=== PATIENT | male | born 1940 | race Caucasian/White ===

== ENCOUNTER 2021-12-03 00:32 | Inpatient (IN) | payer MEDICARE, OTHER, SELFPAY ==
[2021-12-03] VITALS (14 sets, daily range): BP systolic 108–187; BP diastolic 63–108; PULSE 60–115; RESP 16–26; TEMP 36.8–38.8; O2SAT 91–98; BMI 19.3; BMI 21.7; BMI 21.9; BMI 17.7
--- NOTE | 2021-12-03 00:49 | XR_ITS ---
PROCEDURE INFORMATION: Exam: XR Chest Exam date and time: 12/03/2021 1:49 AM Age: 81 years old Clinical indication: Sternal or substernal pain; Additional info: Chest pain TECHNIQUE: Imaging protocol: XR of the chest. Views: 1 view. COMPARISON: CT CERVICAL SPINE WO CON 12/03/2021 1:41 AM FINDINGS: Lungs: Infiltrates within the right upper lobe and bilateral lung bases. Pleural spaces: Unremarkable. No pleural effusion. No pneumothorax. Heart/Mediastinum: Unremarkable. No cardiomegaly. Vasculature: Calcification within thoracic aorta. Bones/joints: Unremarkable. IMPRESSION: Infiltrates within the right upper lobe and bilateral lung bases.
[2021-12-03 00:51] LABS: ABG Base Excess -7.2 mmol/L (-2.4-2.3); ABG HCO3 17.5 mmhg (22.0-26.0); ABG Oxygen Saturation 97 % (90-100); ABG PCO2 28.3 mmhg (35.0-45.0); ABG PH 7.41 mmol/L (7.35-7.45); ABG PO2 84.3 mmhg (80-100); ABG TCO2 18.3 mmhg (23-27)
--- NOTE | 2021-12-03 00:51 | CT_ITS ---
PROCEDURE INFORMATION: Exam: CT Head Without Contrast Exam date and time: 12/03/2021 1:39 AM Age: 81 years old Clinical indication: Altered mental status/memory loss; Confusion or disorientation; Additional info: AMS TECHNIQUE: Imaging protocol: Computed tomography of the head without contrast. Radiation optimization: All CT scans at this facility use at least one of these dose optimization techniques: automated exposure control; mA and/or kV adjustment per patient size (includes targeted exams where dose is matched to clinical indication); or iterative reconstruction. COMPARISON: No relevant prior studies available. FINDINGS: Brain: Patchy hypoattenuation in the periventricular deep white matter bilaterally. Cerebral ventricles: Enlargement of ventricles, sulci and cisterns bilaterally. Paranasal sinuses: Mucosal thickening within paranasal sinuses but no fluid levels are evident. Mastoid air cells: Visualized mastoid air cells are well aerated. Bones/joints: Severe degenerative changes of the cervical spine. Diffuse bone demineralization. Soft tissues: Unremarkable. Vasculature: Calcification of carotid siphons and vertebrobasilar arterial systems. IMPRESSION: 1. No evidence for acute intracranial hemorrhage, midline shift or mass effect. 2. Cortical atrophy and chronic periventricular microangiopathy.
[2021-12-03 00:52] LABS: Allen's Test Non Applicable; Oxygen 2LPM %; Source Left Brachial
--- NOTE | 2021-12-03 01:04 | CT_ITS ---
PROCEDURE INFORMATION: Exam: CT Cervical Spine Without Contrast Exam date and time: 12/03/2021 1:41 AM Age: 81 years old Clinical indication: Other: Altered mental status; Additional info: AMS TECHNIQUE: Imaging protocol: Computed tomography images of the cervical spine without contrast. Radiation optimization: All CT scans at this facility use at least one of these dose optimization techniques: automated exposure control; mA and/or kV adjustment per patient size (includes targeted exams where dose is matched to clinical indication); or iterative reconstruction. COMPARISON: CT HEAD/BRAIN WO CON 12/03/2021 1:39 AM FINDINGS: Bones/joints: Reversal of lordosis which is in part due to remote anterior wedge fractures of C3, C4 and C5. Diffuse bone demineralization. Discs/Spinal canal/Neural foramina: Cortical atrophy and chronic periventricular microangiopathy of the brain parenchyma. Diffuse degenerative disc and facet disease result in multilevel central and foraminal stenosis within the cervical spine. Grade 1 retrolisthesis of C5 appears to be on the basis of chronic degenerative disc and facet disease. Grade 1 anterolisthesis of C2 appears to be on the basis of chronic degenerative disc and facet disease. Lungs: Chronic interstitial disease, scarring and subpleural cyst formation of the lung apices. Vasculature: Calcifications within the regional arteries. Soft tissues: Unremarkable. IMPRESSION: 1. Cortical atrophy and chronic periventricular microangiopathy of the brain parenchyma. 2. Atherosclerotic vascular disease. 3. Diffuse degenerative disc and facet disease result in multilevel central and foraminal stenosis within the cervical spine. 4. Reversal of lordosis which is in part due to remote anterior wedge fractures of C3, C4 and C5. 5. Grade 1 retrolisthesis of C5 appears to be on the basis of chronic degenerative disc and facet disease. 6. Grade 1 anterolisthesis of C2 appears to be on the basis of chronic degenerative disc and facet disease. 7. Osteopenia. 8. Chronic interstitial disease, scarring and subpleural cyst formation of the lung apices.
[2021-12-03 01:06] LABS: Microscopic, Urine URINE MICROSCOPIC (MICROSCOPIC)
[2021-12-03 01:08] LABS: Basophils # 0.1 K/mm3 (0-0.2); Basophils % 1.8 % (0.1-2.0); Hematocrit 49.7 % (42.0-52.0); Lymphocytes # 0.9 K/mm3 (0.7-4.5); Lymphocytes % 12.3 % (10-50); Mean Corpuscular HGB Conc 34.2 g/dL (31.8-35.4); Mean Corpuscular Hemoglobin 31.2 pg (27.0-31.2); Mean Corpuscular Volume 91.2 fl (80-94); Mean Platelet Volume 8.6 fl (7.4-10.4); Monocytes # 0.5 K/mm3 (0.1-1.0); Neutrophils # 6.1 K/mm3 (1.8-7.8); Platelet Count 192 K/mm3 (142-424); Red Blood Count 5.45 M/mm3 (4.60-6.20); Red Cell Distribution Width 15.1 % (11.5-17.5); White Blood Count 7.6 K/mm3 (4.8-10.8)
[2021-12-03 01:10] LABS: Appearance,Urine CLEAR (Clear); Blood, Urine 3+ (Negative); Color,Urine YELLOW (Yellow); Glucose,Urine (UA) Negative (Negative); Ketones,Urine 1+ (Negative); Leukocyte Esterase,Urine Negative (Negative); Nitrate,Urine Negative (Negative); Protein,Urine 2+ (Negative); Specific Gravity, Urine >= 1.030 (1.005-1.030)
[2021-12-03 01:18] LABS: Bilirubin,Urine Negative (Negative)
[2021-12-03 01:19] LABS: Amorphous Sediment,Urine Trace /lpf; Mucus,Urine 2+ /lpf
[2021-12-03 01:20] LABS: Ammonia < 9 umol/L (9-30)
[2021-12-03 01:22] LABS: Alanine Aminotransferase 28 U/L (12-78); Albumin Level 4.3 g/dl (3.5-5.0); Albumin/Globulin Ratio 1.1 (1.1-1.8); Alkaline Phosphatase 86 U/L (38-126); Anion Gap 16.7 mEq/L (5-15); Aspartate Amino Transferase 55 U/L (17-59); Bilirubin,Total 0.8 mg/dl (0.2-1.3); Blood Urea Nitrogen 34 mg/dl (9-20); Calcium 9.1 mg/dl (8.4-10.2); Carbon Dioxide 22 mmol/L (22.0-30.0); Chloride 104 mmol/L (98-107); Creatinine Clearance Estimated 52 mL/min (50-200); Estimated Glomerular Filt Rate 72 ml/min (>60); GFR (African American) 87 ML/MIN (>60); Globulin 3.8 g/dL (1.3-3.2); Glucose 118 mg/dl (74-100); Potassium 3.7 mmoL/L (3.5-5.1); Sodium 139 mmol/L (136-145); Total Protein,Serum 8.1 g/dl (6.3-8.2)
[2021-12-03 01:24] LABS: Lactic Acid 2.9 mmol/L (0.7-2.1)
[2021-12-03 01:27] LABS: C-Reactive Protein 0.7 mg/L (0-4)
[2021-12-03 01:32] LABS: Reflex Lactic Add Lactic Reflex
[2021-12-03 01:33] LABS: NT Pro Brain Natriuretic Pep. 1790 pg/mL (0-450)
[2021-12-03 01:36] LABS: Troponin I 0.07 ng/ml (0.00-0.034)
--- NOTE | 2021-12-03 01:38 | ECG_ITS ---
APPROVED REPORT Exam: Resting ECG HR:89 bpm ECG Measurements Heart Rate 89 AXES MT 154 P 83 QRSd 72 QRS 75 QT 366 T 83 QTc 412 Conclusion SINUS RHYTHM SEPTAL MYOCARDIAL INFARCTION , OF INDETERMINATE AGE [40+ ms Q WAVE IN V1/V2] ABNORMAL ECG UNCONFIRMED REPORT Electronically signed by : Miki Ortiz MD 12/04/2021 18:43:11
[2021-12-03 01:39] LABS: Erythrocyte Sedimentation Rate 11 mm/hr (0-20)
[2021-12-03 01:41] LABS: Procalcitonin 0.074 ng/mL (0.0-2.0)
--- NOTE | 2021-12-03 01:43 | HMH.EDAMS ---
ED Disposition Clinical Impression: Severe sepsis with acute organ dysfunction CAP (community acquired pneumonia) Qualifiers: Laterality: unspecified laterality Qualified Code(s): J18.9 - Pneumonia, unspecified organism Altered mental status Qualifiers: Altered mental status type: delirium Qualified Code(s): R41.0 - Disorientation, unspecified Disposition: Admitted As Inpatient Condition on Discharge: Serious Instructions: DI for Altered Mental Status - Critical Care Critical Care Time: No Attestation: On , the high probability of a clinically significant, sudden or life threatening deterioration of the following system(s) required my full and direct attention, intervention and personal management. The time I documented below is in addition to time spent performing reported procedures but includes the following listed in this critical care notation. Medical Decision Making - Medical Records Medical records reviewed: Yes: I reviewed the patient's medical records. - Iron Inquiry Pt receiving controlled substance: No Vital Signs: 12/03/21 00:26 12/03/21 01:04 Temperature 101.8 F H Temperature Source Rectal Pulse Rate 89 Pulse Rate [Left Radial] 115 H Respiratory Rate 26 H Blood Pressure [Right Arm] 187/108 H Blood Pressure Mean [Right Arm] 134 Blood Pressure Source [Right Arm] Automatic Cuff Blood Pressure Position [Right Arm] Sitting 02 Sat by Pulse Oximetry 95 Oxygen Delivery Method Nasal Cannula Oxygen Flow Rate (LPM) 2 - Lab Data Lab results reviewed: Yes: I reviewed the patient's lab results. Lab Results 12/03/21 00:48: Specimen Source Left brachial, O2 % 2lpm, ABG pH 7.41, ABG pCO2 28.3 L, ABG pO2 84.3, ABG HCO3 17.5 L, ABG Total CO2 18.3 L, ABG O2 Saturation 97, ABG Base Excess -7.2 L, Layton Test Non applicable 12/03/21 00:55: WBC 7.6, RBC 5.45, Hgb 17.0, Hct 49.7, MCV 91.2, MCH 31.2, MCHC 34.2, RDW 15.1, Plt Count 192, MPV 8.6, Neut % (Auto) 80.0, Lymph % (Auto) 12.3, [place] % (Auto) 6.0, Eos % (Auto) 0.0 L, Baso % (Auto) 1.8, Neut # (Auto) 6.1, Lymph # (Auto) 0.9, [place] # (Auto) 0.5, Eos # (Auto) 0.0, Baso # (Auto) 0.1, ESR 11 12/03/21 00:55: Sodium 139, Potassium 3.7, Chloride 104, Carbon Dioxide 22, Anion Gap 16.7 H, BUN 34 H, Creatinine 1.00, Estimated Creat Clear 52, Estimated GFR 72, Est GFR ( Amer) 87, Glucose 118 H, Calcium 9.1, Total Bilirubin 0.8, AST 55, ALT 28, Alkaline Phosphatase 86, Troponin I 0.07 H, C-Reactive Protein 0.7, Total Protein 8.1, Albumin 4.3, Globulin 3.8 H, Albumin/Globulin Ratio 1.1, Procalcitonin 0.074 12/03/21 00:55: Urine Color Yellow, Urine Appearance Clear, Urine pH 5.0, Ur Specific [place] >= 1.030, Urine Protein 2+, Urine Glucose (UA) Negative, Urine Ketones 1+, Urine Blood 3+, Urine Nitrate Negative, Urine Bilirubin Negative, Urine Urobilinogen 1.0, Ur Leukocyte Esterase Negative, Urine RBC 5-10, Urine WBC 3-5, Ur Squamous Epith Cells 5-10, Amorphous Sediment Trace, Urine Mucus 2+ 12/03/21 00:55: Lactate 2.9 H 12/03/21 00:55: Ammonia < 9 L 12/03/21 00:55: NT-Pro-B Natriuret Pep 1790 H Result diagrams: 12/03/21 00:55 12/03/21 00:55 Orders (Tests/Meds): ED MEDICATIONS Discontinued Medications Generic Name Dose Route Start Last Admin Trade Name Yaima PRN Reason Stop Dose Admin Acetaminophen 650 mg 12/03/21 01:11 12/03/21 01:12 Acetaminophen 650mg Suppository RC 12/03/21 01:12 650 mg ONCE ONE Administration Albuterol/Ipratropium 3 ml 12/03/21 00:49 12/03/21 01:03 Ipratropium/Albuterol 3 Ml Neb IH 12/03/21 00:50 3 ml ONCE ONE Administration Sodium Chloride 1,910 mls @ 955 mls/hr 12/03/21 00:51 12/03/21 01:10 Sod Chlor 0.9% 1000ml Bag 30 ml/kg infuse over 2 hr (1910 ml) 12/03/21 02:50 955 mls/hr IV Administration .Q2H ONE Methylprednisolone Sodium Succinate 125 mg 12/03/21 01:10 12/03/21 01:10 Methylprednisolone Sod Succ 125mg Vial IV 12/03/21 01:11 125 mg ONCE ONE Administration ORDE
[2021-12-03 03:07] LABS: Creatine Kinase 677 U/L (55-170)
--- NOTE | 2021-12-03 03:35 | PC.NURSE ---
PT ARRIVED TO FLOOR VIA STRETCHER FROM ED W/STAFF @ [id number]
[2021-12-03 04:30] LABS: Lactic Acid Follow Up (RFLX 1) 2.8 mmol/L (0.7-2.1)
[2021-12-03 04:31] LABS: Basophils % 0.4 % (0.1-2.0); Eosinophils % 0.1 % (0.1-12.0); Hematocrit 46.3 % (42.0-52.0); Hemoglobin 15.1 g/dL (14.1-18.0); Lymphocytes # 0.5 K/mm3 (0.7-4.5); Lymphocytes % 5.8 % (10-50); Mean Corpuscular HGB Conc 32.5 g/dL (31.8-35.4); Mean Corpuscular Hemoglobin 29.9 pg (27.0-31.2); Mean Corpuscular Volume 91.9 fl (80-94); Mean Platelet Volume 9.2 fl (7.4-10.4); Monocytes # 0.5 K/mm3 (0.1-1.0); Monocytes % 5.5 % (1.7-9.3); Neutrophils # 8.1 K/mm3 (1.8-7.8); Neutrophils % 88.2 % (37.0-80.0); Platelet Count 148 K/mm3 (142-424); Red Blood Count 5.04 M/mm3 (4.60-6.20); Red Cell Distribution Width 15.1 % (11.5-17.5); White Blood Count 9.2 K/mm3 (4.8-10.8)
[2021-12-03 04:33] LABS: MANUAL DIFFERENTIAL MANUAL DIFFERENTIAL (MANUAL DIFF)
[2021-12-03 04:35] LABS: Reflex Lactic (2 hrs) Add Lactic Reflex
[2021-12-03 04:36] LABS: Anion Gap 14.1 mEq/L (5-15); Blood Urea Nitrogen 32 mg/dl (9-20); Calcium 8.1 mg/dl (8.4-10.2); Carbon Dioxide 21 mmol/L (22.0-30.0); Chloride 109 mmol/L (98-107); Creatinine Clearance Estimated 52 mL/min (50-200); Estimated Glomerular Filt Rate 81 ml/min (>60); GFR (African American) 98 ML/MIN (>60); Glucose 133 mg/dl (74-100); Potassium 4.1 mmoL/L (3.5-5.1); Sodium 140 mmol/L (136-145)
--- NOTE | 2021-12-03 04:36 | PC.NURSE ---
Patient is alert and oriented to self. Has altered mental status, preventing him from answering most of the admission questions. He has no family at bedside. He is resting in bed at this time. No signs or expressions of pain or discomfort. Staff placed mittens on patient in order to keep IV lines, nasal cannula, and heart monitor leads in place. Patient is confused and keeps attempting to take them off. When patient arrived on unit, staff gave bed bath once more, skin assessment was obtained at that time. Bed alarm is on and functioning appropriately. Call light within patient's reach and working appropriately.
[2021-12-03 04:50] LABS: Lymphocytes % 10 % (10-50); Neutrophils % 79 % (42-76); Platelet Estimate Normal; RBC Morphology Normal; Total Cells Counted 100
--- NOTE | 2021-12-03 07:04 | HMH.PHAVTE ---
[facility] Pharmacy VTE Monitoring - Patient Demographics Admission date: 12/03/21 Report Date: 12/03/21 Time: 07:04 Allergies/Adverse Reactions: Patient Allergies No Known Allergies Allergy (Verified 12/03/21 00:48) Height: 1.68 m Weight: 50.031 kg Patient Problems: Current Active Problems CAP (community acquired pneumonia) (Acute) Altered mental status (Acute) Severe sepsis with acute organ dysfunction (Acute) - VTE Risk Labs: VTE Related Lab Results Hgb 15.1 g/dL (14.1-18.0) D 12/03/21 04:10 Hct 46.3 % (42.0-52.0) 12/03/21 04:10 Plt Count 148 K/mm3 (142-424) 12/03/21 04:10 BUN 32 mg/dl (9-20) H 12/03/21 04:10 Creatinine 0.90 mg/dl (0.66-1.25) 12/03/21 04:10 Estimated Creat Clear 52 mL/min (50-200) 12/03/21 04:10 - Prophylaxis VTE Prophylaxis Ordered?: Yes Types of VTE Prophylaxis: TEDS Knee High Location of Applied Device: Bilateral Lower Extremeties
--- NOTE | 2021-12-03 07:04 | HMH.PHAINT ---
MEDICATION RECONCILIATION COMPLETED ON PATIENT USING EXTERNAL FILL HISTORY FROM PHARMACY. -CORIE NIETO, LAMBERTD
[2021-12-03 07:20] LABS: Lactic Acid Follow up (RFLX 2) 1.7 mmol/L (0.7-2.1)
--- NOTE | 2021-12-03 07:29 | PC.NURSE ---
Markys taken off at beginning of shift, 7AM, due to no order for restraint. Patient was calm and not pulling lines at this time and exhibited no behavior to demonstrate need for restraint.
[2021-12-03 07:33] LABS: Troponin I 0.09 ng/ml (0.00-0.034)
--- NOTE | 2021-12-03 08:00 | CA_ITS ---
APPROVED REPORT EXAM: Comprehensive 2D, Doppler, and color-flow Echocardiogram Anesthesia Associate: Dina Gooden RDCS Ht: 5 ft 4 in Wt: 155lbs BSA: 1.76 BP: 187/108 mmHg Indications: SOA,PNEUMONIA,SEPSIS TDS SECONDARY TO PT CONTRACTURE Conclusion 1. Limited echocardiogram was performed due to patient's factor, to evaluate left ventricular systolic function. 2. Normal left ventricular size preserved left ventricular systolic function, estimated ejection fraction 55% in the obtained views with no regional wall motion abnormality. 3. No significant pericardial effusion noted. 4. Inferior vena cava normal size with normal inspiratory collapse. Electronically signed by : Rober Kelly MD 12/03/2021 19:42:39
--- NOTE | 2021-12-03 08:17 | HMH.HP ---
*Admission Date: 12/03/21 *Chief complaint: Altered mental status *History of present illness: 81-year-old white male, longtime patient of my practice, who struggles with baseline cognitive/functional impairments and a tremor/tic disorder, and a remote history of polysubstance abuse including a hallucinogenic's and LSD in the remote past, who has been very functional and has been living in a subsidized apartment by himself, while he has a friend of his family who oversees his financial affairs. Unfortunately over the past several months, his Conservatory, Ms. Desouza, has shared with me her concerns about his functional decline issues. This over the past 24 hours has come to ahead with increasing mental status change, some fever and development of increased lethargy and loss of functional status. Was brought to the ER, where extensive work-up revealed elevated lactic levels, fevers, and possible sepsis. He was admitted to the hospital with broad-spectrum antibiotics. And need for further diagnostic testing. [facility] History I have reviewed the patient's past medical history: Yes Medical History: Reports:: Chronic Obstructive Pulmonary Disease (COPD), Gastroesophageal Reflux Disease(GERD) *Have you ever received a pneumonia vaccine?: Yes *Have you received a flu vaccine this season?: Yes Other Medical History: Reports: Other Comment:: History of polysubstance abuse, history of tremor disorder and history of tic disorder Other Surgeries: Yes: No Previous Surgery Amputation: No Fractures: No - *Social History Last grade of school completed: High school graduate Smoking Status: Unknown if ever smoked # Packs/Day (cigarettes): 2 #Yrs smoked (if former smoker): 50 Alcohol Intake: never Substance Use Type: former substance user, hallucinogens, tranquilizers *Occupational Status:: unemployed *Travel in the last 8 weeks: None Family Hx:: No significant family history Review of Systems - Review of Systems Review of systems:: unable to obtain Meds Home Medications Medication Instructions Recorded Confirmed Type Albuterol Sulfate [Albuterol 2 puff IH Q6HP PRN 12/03/21 12/03/21 History Sulfate Hfa] Allergies Allergy/AdvReac Type Severity Reaction Status Date / Time No Known Allergies Allergy Verified 12/03/21 00:48 Exam Vital signs and Labs for Last 24 Hours: Temp Pulse Resp BP Pulse Ox 98.9 F 83 20 140/90 96 12/03/21 03:30 12/03/21 04:03 12/03/21 03:30 12/03/21 03:30 12/03/21 04:24 Laboratory Results - last 24 hr 12/03/21 00:48: Specimen Source Left brachial, O2 % 2lpm, ABG pH 7.41, ABG pCO2 28.3 L, ABG pO2 84.3, ABG HCO3 17.5 L, ABG Total CO2 18.3 L, ABG O2 Saturation 97, ABG Base Excess -7.2 L, Layton Test Non applicable 12/03/21 00:55: WBC 7.6, RBC 5.45, Hgb 17.0, Hct 49.7, MCV 91.2, MCH 31.2, MCHC 34.2, RDW 15.1, Plt Count 192, MPV 8.6, Neut % (Auto) 80.0, Lymph % (Auto) 12.3, [place] % (Auto) 6.0, Eos % (Auto) 0.0 L, Baso % (Auto) 1.8, Neut # (Auto) 6.1, Lymph # (Auto) 0.9, [place] # (Auto) 0.5, Eos # (Auto) 0.0, Baso # (Auto) 0.1, ESR 11 12/03/21 00:55: Sodium 139, Potassium 3.7, Chloride 104, Carbon Dioxide 22, Anion Gap 16.7 H, BUN 34 H, Creatinine 1.00, Estimated Creat Clear 52, Estimated GFR 72, Est GFR ( Amer) 87, Glucose 118 H, Calcium 9.1, Total Bilirubin 0.8, AST 55, ALT 28, Alkaline Phosphatase 86, Troponin I 0.07 H, C-Reactive Protein 0.7, Total Protein 8.1, Albumin 4.3, Globulin 3.8 H, Albumin/Globulin Ratio 1.1, Procalcitonin 0.074 12/03/21 00:55: Urine Color Yellow, Urine Appearance Clear, Urine pH 5.0, Ur Specific [place] >= 1.030, Urine Protein 2+, Urine Glucose (UA) Negative, Urine Ketones 1+, Urine Blood 3+, Urine Nitrate Negative, Urine Bilirubin Negative, Urine Urobilinogen 1.0, Ur Leukocyte Esterase Negative, Urine RBC 5-10, Urine WBC 3-5, Ur Squamous Epith Cells 5-10, Amorphous Sediment Trace, Urine Mucus 2+ 12/03/21 00:55: Lactate 2.9 H 12/03/21 00:55: Ammonia < 9 L 12/03/21 00:55: NT-Pr
[2021-12-03 09:28] LABS: Thyroid Stimulating Hormone 0.53 uIU/mL (0.465-4.68)
--- NOTE | 2021-12-03 09:34 | DIET.NUTRFU ---
RD rounded with provider this AM, provider indicated a mental/overall decline from baseline. He normally lives alone in a half-way environment and is independent with ADL's. Today upon visit he was not able to answer questions appropriately and had not eaten breakfast yet. He may need assistance with meals and placement upon discharge. Will continue to monitor.
[2021-12-03 09:44] LABS: Vitamin B12 240 pg/mL (239-931)
--- NOTE | 2021-12-03 10:01 | HMH.PTEV ---
Physical Therapy Evaluation Rehab PT IP Evaluation Start: 12/03/21 08:25 Freq: ONCE Status: Active Protocol: Document 12/03/21 09:54 PHORSTANISLAV (Rec: 12/03/21 10:01 PHORNE [id number]) Subjective/History History History 81 yowm adm to [facility] with sepsis and AMS. He is currently minimally responsive to all attempts at history. He presents with increased tone throughout B UE and LE and rigidity noted with all positions. Subjective Subjective Pt did not voice any c/o this am. Rehab PT IP Eval Objective Appearance Patient Behavior Sedated,Confused Patient Orientation Person Difficulty following instructions moderate Speech Pattern Delayed Ambulation Patient Able to Ambulate No Balance Ability to Arise Unable Sitting Balance Leans or slides in chair Standing Balance Unsteady Dynamic Sitting Balance Ability Poor Dynamic Standing Balance Ability Poor Transfers Bed Transfer Ability Maximum x 1 (75% assist) Chair Transfer Ability Maximum x 2 (75% assist) Sit to Stand Bed Transfer Ability Maximum x 2 (75% assist) Sit to Stand Chair Transfer Ability Maximum x 2 (75% assist) ROM All Extremities PT ROM Status ABN Abnormal ROM Comment increased tone throughout Rehab PT IP prob,goals,plan Problems Date of Evaluation: 12/03/21 PT IP Problems Bed Mobility,Transfers,Gait, Self care Rehab Potential Rehab Potential Fair Plan PT Intervention Plan Bed Mobility,Transfers,Gait, Balance,Self care,Therapeutic Exercise PT Plan Frequency BID Duration LOS Discharge Goals Bed Transfer Ability Moderate x 1 (50% assist) Sit to Stand Chair Transfer Ability Moderate x 2 (50% assist) Ambulation Distance (feet) 10 Discharge Plan PT Discharge Plan Pt is most appropriate for rehab plcement at this time and would be unable to care for himself independently at this time. G -code Required No Eval Complexity Eval Charge Codes 89537 - High Complexity PHYSICIAN CERTIFICATION: I certify the specified therapy services for Kelvin Fowler are required, authorized, and reviewed every 30 days.
--- NOTE | 2021-12-03 10:01 | SW/DCPLANNER ---
Addendum entered by [facility] 12/06/21 09:58: The plan for this patient is to discharge to [facility] today. Patient will require a COVID swab prior to discharge. I have updated patient's POA regarding discharge plans. Addendum entered by [facility] 12/05/21 15:47: Per Lucinda w/ [facility] this patient will require a COVID swab prior to discharge from [facility]. Addendum entered by [facility] 12/05/21 12:20: Lucinda w/ [facility] has stated that she can accept this patient once medically stable for discharge. The plan is for this patient to discharge [facility] under palliative care w/ [facility]. Addendum entered by [facility] 12/05/21 11:43: Patient information has also been faxed to [facility]. Addendum entered by [facility] 12/04/21 12:01: The following facilities have denied this patient: [facility], [facility], [facility], [facility] and [facility]. Lucinda w/ [facility] and [facility] are currently reviewing patient information. Addendum entered by [facility] 12/03/21 15:43: [facility] has denied this patient. Patient information has been faxed to [facility], [facility] and [facility] [place]. Patient's POA is aware of situation. Addendum entered by [facility] 12/03/21 11:31: [facility]anne vict[facility]/ [facility] is unable to accept this patient. Caity victoria/ [facility] is currently reviewing patient information. Original Note: I spoke with patient's POA (Renata Desouza [phone]) regarding discharge plans for this patient. Renata stated that patient has needed rehabilitation for the past couple weeks. I did explain to Renata that PT/OT did evaluate this patient this AM and recommended SNF level of care at time of discharge. Renata expressed an interest in [facility] or [facility]: patient information will be faxed to both facilities. Renata is aware that she will need to bring POA documentation to hospital. Discharge date is unknown at this time: I will continue to follow up with MD and POA.
--- NOTE | 2021-12-03 10:45 | HMH.OTEV ---
OT Inpatient Evaluation Rehab OT IP Evaluation Start: 12/03/21 08:25 Freq: ONCE Status: Complete Protocol: Document 12/03/21 10:38 [facility] (Rec: 12/03/21 10:45 [facility] [id number]) Rehab OT IP Assessment Subjective History Pt resting in bed on arrival. Pt is minimally responsive to all attempts to obtain a history of prior level of function. Pt also does not answer orientation questions. Pt was admitted on 12/03/21 due to altered mental status. He presents with significant tone in Bilateral UE and LE. He remains rigid in all positions. Subjective Pt did not engage in verbal communcation. Pt required max assist x 2 to go from supine to sitting at eob. Pt required min/cga to maintain statid sittin balance at eob. Pt completed a sit stand, pivot transfer from bed to chair with max assist x 2. Pt sat down in chair with max assist. Pt was left sitting in chair with call gutierrez and all other needs in reach. Objective Upper Extremity Gross ROM Mod Limitation 50% Shoulder ROM Limitations Muscle Tone Elbow ROM Limitations Muscle Tone Wrist Limitations of Range of Motion Muscle Tone Bed Mobility bed mobility-scooting,bed mobility - supine/sit,bed mobility - rolling Assist Level Maximum x 1 (75% assist) Transfer Training Sit/Stand/Pivot Transfer Assist Level Maximum x 2 (75% assist) Chair Transfer Ability Maximum x 2 (75% assist) Chair Transfer Technique Stand Pivot Rehab OT IP prob,goals,plan Problems Date of Evaluation: 12/03/21 OT IP Problems Bed Mobility,Transfers,Gait, Balance,Self care,Safety Rehab Potential Rehab Potential Good Equipment Needs Assistive Devices Rolling / Wheeled Walker Plan OT intervention Plan Bed Mobility,Transfers,Gait, Balance,Self care,Safety, Therapeutic Exercise OT Plan Frequency BID Duration
[2021-12-03 10:49] LABS: Ammonia < 9 umol/L (9-30)
--- NOTE | 2021-12-03 14:05 | PC.NURSE ---
rounded on patient. sitting up in chair. confused, assisted with lunch which patient refused to take bites of at that time.
[2021-12-04] VITALS (12 sets, daily range): BP systolic 151–184; BP diastolic 73–91; PULSE 62–81; RESP 14–18; TEMP 36.8–37.2; O2SAT 92–98; BMI 18.3
--- NOTE | 2021-12-04 | FL_ITS ---
FINAL REPORT CLINICAL HISTORY: . 3:30 FLUORO TIME, FINDINGS: MODIFIED BARIUM SWALLOW History: Dysphagia FINDINGS: Fluoroscopy was provided for the speech pathologist to evaluate the swallowing mechanism. The patient was given several different consistencies of barium while the swallow was visualized fluoroscopically. The report of the speech pathologist should be consulted prior to making dietary decisions. FLUOROSCOPY TIME: 3 minutes 30 seconds IMPRESSION: Modified barium swallow under fluoroscopic guidance. Please see the report of the speech pathologist for Dietary recommendations. Films reviewed , interpreted and dictated by Dr. Woodall Transcribed by Abdias Byrd PA-C. Reviewed, Interpreted and Dictated by Eduar Woodall III, MD Transcribed by JAMEL Doshi Authenticated and . [facility]
--- NOTE | 2021-12-04 06:41 | HMH.ACPN2 ---
Internal Medicine - PN: Subj *Date: 12/04/21 *Time: 08:29 Interval history: Patient remains hemodynamically stable this morning. Afebrile. Having trouble with dietary adjustments, still has concern for aspiration. Stopped breakfast due to coughing. Patient is a bit more alert, recognizes me on exam. Monge catheter remains in place, draining fairly clear yellow urine. Denies any nausea or vomiting. Has not had a bowel movement. Exam Vital signs and Labs for Last 24 Hours: Temp Pulse Resp BP Pulse Ox 99.0 F 71 18 181/91 H 92 L 12/04/21 03:39 12/04/21 04:05 12/04/21 03:39 12/04/21 03:39 12/04/21 03:39 Laboratory Results - last 24 hr 12/03/21 06:50: TSH 0.53 12/03/21 06:50: Vitamin B12 240 12/03/21 06:58: Troponin I 0.09 H 12/03/21 06:58: Lactate 1.7 12/03/21 10:20: Ammonia < 9 L I & O for Last 24 hours: Intake & Output 12/01/21 12/02/21 12/03/21 12/04/21 23:59 23:59 23:59 23:59 Intake Total 1260 / 1260 Output Total 800 / 1300 500 / 500 Balance 460 / -40 -500 / -500 Weight 50.03 kg 51.823 kg Narrative: - Constitutional thin, chronically ill appearing, disheveled - *Routine HEENT Exam Head: Present: normocephalic Eye: Present: EOMI, PERRL ENT: Present: mucous membranes dry - *Routine Neck Exam Present: supple. Absent: lymphadenopathy - *Routine Respiratory Exam Present: prolonged expiratory phase, rhonchi and wheeze bilaterally - *Routine Cardiovascular Exam Present: RRR - *Routine Abdominal Exam Present: soft, normoactive bowel sounds. No tenderness - *Routine Extremities Exam Present: pulses intact. Absent: cyanosis, clubbing, edema - *Routine Skin Exam Present: dry, warm. Absent: rash - *Routine Neurological Exam -Prominent pill-rolling tremor in hands, makes good eye contact, alert and oriented to person. Responds appropriately to questions. He spontaneously moves all of his extremities, follows commands. Assessment and Plan (1) CAP (community acquired pneumonia) Status: Acute Qualifiers: Laterality: unspecified laterality Qualified Code(s): J18.9 - Pneumonia, unspecified organism Category: Medical Code(s): J18.9 - Pneumonia, unspecified organism (2) Tremor due to disorder of central nervous system Status: Acute Category: Medical Code(s): G96.9 - Disorder of central nervous system, unspecified; R25.1 - Tremor, unspecified (3) Personal history of nicotine dependence Status: Acute Category: Medical Code(s): Z87.891 - Personal history of nicotine dependence (4) Substance abuse in remission Status: Acute Category: Medical Code(s): F19.11 - Other psychoactive substance abuse, in remission (5) Altered mental status Status: Acute Qualifiers: Altered mental status type: delirium Qualified Code(s): R41.0 - Disorientation, unspecified Category: Medical Code(s): R41.82 - Altered mental status, unspecified (6) Severe sepsis with acute organ dysfunction Status: Acute Category: Medical Code(s): A41.9 - Sepsis, unspecified organism; R65.20 - Severe sepsis without septic shock (7) Rhabdomyolysis Status: Acute Category: Medical Code(s): M62.82 - Rhabdomyolysis due to severity of illness, CK >600 on admission. - Assessment and plan all Dx Assessment and Plan for all problems:: 81-year-old male with concern for Parkinson's in the outpatient setting. Admitted for sepsis due to pneumonia. Suspected aspiration pneumonia given difficulty swallowing. Continuing on broad-spectrum antibiotics. Somewhat improved this morning, remains afebrile. Difficulty swallowing necessitating speech eval. Problems addressed as follows: Sepsis Community acquired pneumonia -Continue broad-spectrum antibiotics -Symptoms defervescing, afebrile -Initiate DuoNebs today -Speech eval for swallow assessment given concern for aspiration, n.p.o. pending eval Rhabdomyolysis -Elevated CK on admission, repeat labs
[2021-12-04 07:54] LABS: Coronavirus 19, PCR Not Detected (NotDetected); Influenza A, PCR Not Detected (NotDetected); Influenza B, PCR Not Detected (NotDetected)
--- NOTE | 2021-12-04 08:16 | DIET.NUTRFU ---
Addendum entered by Fouzia White RD, LD 12/04/21 15:44: OUTCOME ANALYST saw patient at bedside and determined a MBS was best to determine safest diet, will continue to follow-up for results. Original Note: Rounded with provider this morning, nursing staff providing 1:1 assistance with meals. Nursing staff reporting coughing with both solids and liquids, was sitting up in bed for meals. Consulted speech to determine safest consistency, currently on regular/thin which is his baseline at home. Looking for placement upon discharge. Start supplements to help meet needs.
--- NOTE | 2021-12-04 10:14 | PC.NURSE ---
notified Dr lorenzana face to face of pt bp 196/72
[2021-12-04 10:52] LABS: Basophils # 0.2 K/mm3 (0-0.2); Eosinophils % 0.1 % (0.1-12.0); Hematocrit 48.1 % (42.0-52.0); Hemoglobin 15.9 g/dL (14.1-18.0); Lymphocytes # 1.1 K/mm3 (0.7-4.5); Lymphocytes % 6.7 % (10-50); Mean Corpuscular HGB Conc 33.2 g/dL (31.8-35.4); Mean Corpuscular Hemoglobin 30.3 pg (27.0-31.2); Mean Corpuscular Volume 91.4 fl (80-94); Mean Platelet Volume 8.3 fl (7.4-10.4); Monocytes # 0.8 K/mm3 (0.1-1.0); Monocytes % 5.2 % (1.7-9.3); Neutrophils # 13.8 K/mm3 (1.8-7.8); Platelet Count 109 K/mm3 (142-424); Red Blood Count 5.26 M/mm3 (4.60-6.20); Red Cell Distribution Width 15.1 % (11.5-17.5); White Blood Count 15.9 K/mm3 (4.8-10.8)
[2021-12-04 10:59] LABS: MANUAL DIFFERENTIAL MANUAL DIFFERENTIAL (MANUAL DIFF)
[2021-12-04 11:11] LABS: Chloride 103 mmol/L (98-107); Sodium 136 mmol/L (136-145)
[2021-12-04 11:12] LABS: Potassium 3.6 mmoL/L (3.5-5.1)
[2021-12-04 11:14] LABS: Alanine Aminotransferase 36 U/L (12-78); Alkaline Phosphatase 66 U/L (38-126); Anion Gap 14.6 mEq/L (5-15); Aspartate Amino Transferase 85 U/L (17-59); Blood Urea Nitrogen 25 mg/dl (9-20); Carbon Dioxide 22 mmol/L (22.0-30.0); Creatinine Clearance Estimated 44 mL/min (50-200); Estimated Glomerular Filt Rate 109 ml/min (>60); GFR (African American) 132 ML/MIN (>60)
[2021-12-04 11:15] LABS: Albumin/Globulin Ratio 1.2 (1.1-1.8); Calcium 8.7 mg/dl (8.4-10.2); Creatine Kinase 950 U/L (55-170); Globulin 3.3 g/dL (1.3-3.2); Glucose 108 mg/dl (74-100); Total Protein,Serum 7.3 g/dl (6.3-8.2)
[2021-12-04 11:50] LABS: Lymphocytes % 9 % (10-50); Monocytes % 6 % (2-9); Neutrophils % 85 % (42-76); Total Cells Counted 100
[2021-12-04 11:51] LABS: Ovalocytes 1+; Platelet Estimate Normal; Schistocytes 1+
--- NOTE | 2021-12-04 17:12 | HMH.SLDYSPHA ---
Speech & Language Evaluation Speech/Language Dysphagia Evaluation Start: 12/04/21 16:51 Freq: ONCE Status: Active Protocol: Document 12/04/21 16:51 BROCK (Rec: 12/04/21 17:12 BROCK [id number]) Dysphagia Assess/Goals/Plan Assessment Date of Evaluation: 12/04/21 Evaluation Type Initial Certification Assessment/Problems Dysphagia Does Patient Qualify for Service No Qualify/Failure Comment Given overt s/sxs of aspiration, pt requires further testing in order to determine if he required skilled ST services at this time. Recommendations PHYSICIAN CERTIFICATION: The specified therapy services are required, authorized, and reviewed every 30 days. Diet Recommendations NPO pending MBSS Plan Pt/Guardian verbally ack understanding Yes of dx/prognosis/goals Pt/Guardian verbally ack understanding Yes of/consent to tx prog G -code Required No Education Instructions provided BDE results discussed with pt, nursing, and case management, all of whom express understanding. Pt/Caregiver able to recall information Able to recall/restate Reinforcement needed No Speech & Language HPI History Present Illness Description of Patient Problem Pt is a 81 y.o male admitted to [facility] with fever and AMS. He has a PMH of polysubstance abuse, COPD, and GERD. He currently has sepsis and pneumonia. Rehab Services Assessed Speech therapy Is this evaluation r/t stroke? No Language Primary Language Salvadorean General Information General Current Food Consistancy NPO Dentition Edentulous Oxygen Status Room Air Ability to Follow Directions Fair Communication Ability Severe Impairment Dysphagia:Food Presentation Evaluation Food Type Mechanical Soft,Regular,Liquid Normal/Thin Liquid Response Delayed swallow,Coughing after swallow,Wet voice [place] Consistency Liquid Response Delayed swallow,Coughing after swallow,Wet voice Dysphagia Evaluation Regular Food Difficulty chewing,Delayed Behavior Response swallow Dysphagia Evaluation Summary CSE completed to analyze and assess oropharyngeal swallow. SALON ASSISTANT trialed thins, nectar thick liquids, puree, and regular solids. Overt s/sxs of
--- NOTE | 2021-12-04 17:34 | PC.NURSE ---
pt has rested in his room this shift. he was up to the chair for a few hours this early afternoon. he was alert to self and location. pt had a modified barium swallow this afternoon, which he did not pass. pt is currently NPO. lungs are clear, bowel sounds are active in all quads. nad noted. will continue to monitor.
--- NOTE | 2021-12-04 17:46 | HMH.SLMBS2 ---
Speech & Language Evaluation Speech/Language Mod Barium Swallow Start: 12/04/21 08:16 Freq: ONCE Status: Complete Protocol: Document 12/04/21 17:33 BROCK (Rec: 12/04/21 17:46 [email or web address] [id number]) General Information General Current Food Consistency NPO Dentition Edentulous Oxygen Status Room Air Facial Symmetry Symmetrical Ability to Follow Directions Poor Communication Ability Severe Impairment MBS Recommendations Diet Dietary Recommendations NPO Comment Nutrition via alternate means per MD discretion Treatment/Strategies Treatment Recommendation Oral Motor Exercises Referrals/Other Recommended Referrals Alternate Feeding Method Mod Barium Swallow Impressions Summary and Impressions Oral Phase Impression Severe Impairment Oral Phase Summary Severe oral dysphagia. Pt exhibited tongue pumping and oral holding throughout the MBSS. He had difficulty with bolus formation and swallow initiation, resulting in prespill of entire bolus before the initiation of the pharyngeal swallow. Solids not trialed on MBSS given severity of deficits. Pharyngeal Phase Impression Severe Impairment Pharyngeal Phase Summary Severe pharyngeal dysphagia. Severe delay with thin and nectar thick liquids, requiring moderate cues. Pt never initiated swallow with puree and had to use a liquid wash to clear entire bolus from the pharynx. Delay resulted in aspiration before and during the swallow with all trials of thin liquids. If patient initiates swallow, he has mild diffuse pharyngeal residue, which he is unable to independently clear and poses a risk for continued aspiration after the swallow. Given severe oropharyngeal dysphagia, DECKHAND TUNA BOAT recommending NPO, nutrition and medication via alternate means. DECKHAND TUNA BOAT will follow up for therapeutic
[2021-12-05] VITALS (12 sets, daily range): BP systolic 94–161; BP diastolic 57–110; PULSE 63–92; RESP 16–20; TEMP 36.8–37.6; O2SAT 93–97; BMI 18.6
--- NOTE | 2021-12-05 00:49 | PC.NURSE ---
nurse notified of pts blood pressure for 00:00 rounds.
--- NOTE | 2021-12-05 05:37 | PC.NURSE ---
Pt found with Iv line in his hand. He removed the coban that was covering his iv. Attempted x2 nurses to restart IV without success. Pt unable to voice why he removed his iv. 3rd nurse to attempt to obtain iv at this time.
--- NOTE | 2021-12-05 06:46 | HMH.ACPN2 ---
Internal Medicine - PN: Subj *Date: 12/05/21 *Time: 21:50 Interval history: Patient remains quite fatigued. Failed barium swallow yesterday. Unable to tolerate any p.o. intake. Lost IVs this morning. No good access for fluids or medication. Unable to obtain blood through multiple lab draws. Patient's POA today about goals of care. Given his worsening clinical status, her understanding of his goals of care/wishes for no life prolonging measures. She does not feel he would want a feeding tube. Would like to pursue therapeutic approaches in the longterm, but then pursue Hospice if no improvements. Picc to be placed, code status discussion for possible DNR, feeding tube declined. Exam Vital signs and Labs for Last 24 Hours: Temp Pulse Resp BP Pulse Ox 99.5 F 68 18 133/72 93 L 12/05/21 04:00 12/05/21 06:04 12/05/21 04:00 12/05/21 04:00 12/05/21 04:00 Laboratory Results - last 24 hr 12/04/21 07:50: SARS-CoV-2 (PCR) Not detected, Influenza A Untype (PCR) Not detected, Influenza Type B (PCR) Not detected 12/04/21 10:44: WBC 15.9 H D, RBC 5.26, Hgb 15.9, Hct 48.1, MCV 91.4, MCH 30.3, MCHC 33.2, RDW 15.1, Plt Count 109 L D, MPV 8.3, Neut % (Auto) 87.0 H, Lymph % (Auto) 6.7 L, [place] % (Auto) 5.2, Eos % (Auto) 0.1, Baso % (Auto) 1.0, Neut # (Auto) 13.8 H, Lymph # (Auto) 1.1, [place] # (Auto) 0.8, Eos # (Auto) 0.0, Baso # (Auto) 0.2, Total Counted 100, Neutrophils % (Manual) 85 H, Lymphocytes % (Manual) 9 L, Monocytes % (Manual) 6, Platelet Estimate Normal, Ovalocytes 1+, Schistocytes 1+ 12/04/21 10:44: Sodium 136, Potassium 3.6, Chloride 103, Carbon Dioxide 22, Anion Gap 14.6, BUN 25 H, Creatinine 0.70 D, Estimated Creat Clear 44, Estimated GFR 109, Est GFR ( Amer) 132 D, Glucose 108 H, Calcium 8.7, Total Bilirubin 1.0, AST 85 H D, ALT 36 D, Alkaline Phosphatase 66, Total Protein 7.3, Albumin 4.0, Globulin 3.3 H, Albumin/Globulin Ratio 1.2 12/04/21 10:44: Total Creatine Kinase 950 H* D I & O for Last 24 hours: Intake & Output 12/02/21 12/03/21 12/04/21 12/05/21 23:59 23:59 23:59 23:59 Intake Total 1260 / 1260 120 / 120 Output Total 800 / 1300 1700 / 2250 550 / 550 Balance 460 / -40 -1580 / -2130 -550 / -550 Weight 50.03 kg 51.823 kg 52.435 kg Microbiology Reports for the Last 24 Hours: Microbiology 12/03/21 10:20 Sputum - Expectorated Sputum Gram Stain - Final 12/03/21 00:55 Blood Blood Culture - Preliminary NO GROWTH AFTER 48 HOURS 12/03/21 00:55 Blood Blood Culture - Preliminary NO GROWTH AFTER 48 HOURS Narrative: - Constitutional thin, chronically ill appearing, disheveled - *Routine HEENT Exam Head: Present: normocephalic Eye: Present: EOMI, PERRL ENT: Present: mucous membranes dry - *Routine Neck Exam Present: supple. Absent: lymphadenopathy - *Routine Respiratory Exam Present: prolonged expiratory phase, rhonchi bilaterally; wheeze improved - *Routine Cardiovascular Exam Present: RRR - *Routine Abdominal Exam Present: soft, normoactive bowel sounds. No tenderness - *Routine Extremities Exam Present: pulses intact. Absent: cyanosis, clubbing, edema - *Routine Skin Exam Present: dry, warm. Absent: rash - *Routine Neurological Exam -Prominent pill-rolling tremor in hands, makes good eye contact, alert and oriented to person. Responds appropriately to questions. He spontaneously moves all of his extremities, follows commands. disorented to time and situation. Assessment and Plan (1) CAP (community acquired pneumonia) Status: Acute Qualifiers: Laterality: unspecified laterality Qualified Code(s): J18.9 - Pneumonia, unspecified organism Category: Medical Code(s): J18.9 - Pneumonia, unspecified organism (2) Tremor due to disorder of central nervous system Status: Acute Category: Medical Code(s): G96.9 - Disorder of central nervous system, unspecified; R25.1 - Tremor, unspecifie
[2021-12-05 09:32] LABS: Barbiturates Screen,Urine Negative ng/ml (<200)
[2021-12-05 09:33] LABS: Amphetamine/Metha Screen,Urine Negative ng/ml (<1000); Benzodiazepines Screen,Urine Negative ng/ml (<200)
[2021-12-05 09:34] LABS: Cannabinoid Screen,Urine Negative ng/ml (<50); Methadone Screen,Urine Negative ng/ml (<300)
[2021-12-05 09:35] LABS: Cocaine Screen,Urine Negative ng/ml (<300)
[2021-12-05 09:36] LABS: Opiate Screen,Urine Negative ng/ml (<300); Phencyclidine Screen,Urine Negative ng/ml (<25)
[2021-12-05 09:52] LABS: Basophils # 0.2 K/mm3 (0-0.2); Basophils % 1.6 % (0.1-2.0); Eosinophils % 0.4 % (0.1-12.0); Hematocrit 44.9 % (42.0-52.0); Hemoglobin 15.8 g/dL (14.1-18.0); Lymphocytes # 0.9 K/mm3 (0.7-4.5); Lymphocytes % 7.8 % (10-50); Mean Corpuscular HGB Conc 35.2 g/dL (31.8-35.4); Mean Corpuscular Hemoglobin 31.6 pg (27.0-31.2); Mean Corpuscular Volume 89.7 fl (80-94); Mean Platelet Volume 10.5 fl (7.4-10.4); Monocytes # 0.9 K/mm3 (0.1-1.0); Monocytes % 7.5 % (1.7-9.3); Neutrophils # 9.7 K/mm3 (1.8-7.8); Neutrophils % 84.3 % (37.0-80.0); Platelet Count 119 K/mm3 (142-424); White Blood Count 11.5 K/mm3 (4.8-10.8)
--- NOTE | 2021-12-05 10:34 | PC.NURSE ---
Addendum entered by Xenia Murillo RN 12/05/21 12:34: At 1111 called back and was made aware of the difficulty with lab draws and unable to get an iv. stated he wanted to talk with the poa about goals of care and would let us know about the plan of care after speaking with them Addendum entered by Xenia Murillo RN 12/05/21 10:47: called md office and left message with lelo about the attempts to obtain iv access. currently no iv and awaiting further instruction from Original Note: attempted to obtain iv with ultrasound. attempted to stick patient 4 times with possible spots and was unsuccessful will not make any more attempts, primary nurse will notify about access
--- NOTE | 2021-12-05 11:09 | CARE MANAGER ---
I called and spoke with Renata, patient's POA today regarding patient's swallow eval and options for how to proceed with nutritional intake. Renata states that she has spoken with patient in the past and knows that patient would want to continue to eat and forgo the PEG tube placement. Dr. Goode notified of this information and plans to discuss with Renata again later today.
--- NOTE | 2021-12-05 11:15 | DIET.NUTRFU ---
Patient failed swallow study, patient currently NPO, not medically feasible at this time to maintain nutrition. Provider to call family about wt loss and possible PEG placement. Will continue to follow
--- NOTE | 2021-12-05 13:16 | XR_ITS ---
FINAL REPORT CLINICAL HISTORY: Confirm PICC line placement COMPARISON: December 03, 2021 FINDINGS: A single portable view of the chest was obtained. A new left PICC line is noted with the tip terminating in the mid SVC. The heart size and pulmonary vascularity are within normal limits. The mediastinum is within normal limits. No acute pulmonary abnormality is identified. The bony thorax is intact. IMPRESSION: New left PICC line, tip terminates mid SVC. No active cardiopulmonary disease. Reviewed, Interpreted and Dictated by Eduar Woodall III, MD Transcribed by Sherita Boyle Authenticated and [facility]
[2021-12-05 19:05] LABS: Chloride 97 mmol/L (98-107); Potassium 3.1 mmoL/L (3.5-5.1); Sodium 128 mmol/L (136-145)
[2021-12-05 19:07] LABS: Alanine Aminotransferase 38 U/L (12-78); Alkaline Phosphatase 60 U/L (38-126); Anion Gap 11.1 mEq/L (5-15); Aspartate Amino Transferase 69 U/L (17-59); Bilirubin,Total 1.1 mg/dl (0.2-1.3); Blood Urea Nitrogen 15 mg/dl (9-20); Carbon Dioxide 23 mmol/L (22.0-30.0); Creatine Kinase 447 U/L (55-170); Creatinine Clearance Estimated 44 mL/min (50-200); Estimated Glomerular Filt Rate 130 ml/min (>60); GFR (African American) 157 ML/MIN (>60)
[2021-12-05 19:08] LABS: Albumin Level 3.6 g/dl (3.5-5.0); Albumin/Globulin Ratio 1.1 (1.1-1.8); Calcium 8.2 mg/dl (8.4-10.2); Globulin 3.2 g/dL (1.3-3.2); Glucose 106 mg/dl (74-100); Total Protein,Serum 6.8 g/dl (6.3-8.2)
--- NOTE | 2021-12-05 20:02 | PC.NURSE ---
PICC line placed after consent obtained from POA. IV antibiotics given and labs drawn. Turn q2. VS stable and patient on room air. No other complaints noted.
[2021-12-06] VITALS: BP 146/89; PULSE 80; PULSE 87; RESP 18; TEMP 37.2; O2SAT 93
--- NOTE | 2021-12-06 03:41 | PC.NURSE ---
Patient has been awake most of the night. No c/o pain or discomfort. Staff gave bed bath and patient tolerated well. Code status has been changed to DNR, per Dr. Vasquez and patient's POA. Patient continues on room air without problems. Call light in place and working appropriately.
[2021-12-06 04:00] VITALS: BP 90/54; PULSE 79; PULSE 80; RESP 18; TEMP 37.3; O2SAT 96
[2021-12-06 05:00] VITALS: BMI 18.5
[2021-12-06 06:10] VITALS: PULSE 73; PULSE 76
[2021-12-06 06:23] LABS: Basophils % 0.3 % (0.1-2.0); Eosinophils # 0.1 K/mm3 (0.0-0.4); Eosinophils % 0.5 % (0.1-12.0); Hematocrit 42.3 % (42.0-52.0); Hemoglobin 14.4 g/dL (14.1-18.0); Lymphocytes # 0.7 K/mm3 (0.7-4.5); Lymphocytes % 7.5 % (10-50); Mean Corpuscular HGB Conc 34.1 g/dL (31.8-35.4); Mean Corpuscular Hemoglobin 30.3 pg (27.0-31.2); Mean Corpuscular Volume 88.9 fl (80-94); Monocytes # 0.9 K/mm3 (0.1-1.0); Monocytes % 10.1 % (1.7-9.3); Neutrophils # 7.2 K/mm3 (1.8-7.8); Neutrophils % 81.5 % (37.0-80.0); Platelet Count 128 K/mm3 (142-424); Red Blood Count 4.76 M/mm3 (4.60-6.20); White Blood Count 8.8 K/mm3 (4.8-10.8)
[2021-12-06 06:33] LABS: Chloride 99 mmol/L (98-107)
[2021-12-06 06:34] LABS: Sodium 131 mmol/L (136-145)
[2021-12-06 06:36] LABS: Alanine Aminotransferase 37 U/L (12-78); Aspartate Amino Transferase 65 U/L (17-59); Blood Urea Nitrogen 16 mg/dl (9-20); Creatinine Clearance Estimated 44 mL/min (50-200); Estimated Glomerular Filt Rate 130 ml/min (>60); GFR (African American) 157 ML/MIN (>60)
[2021-12-06 06:37] LABS: Albumin Level 3.2 g/dl (3.5-5.0); Albumin/Globulin Ratio 1.1 (1.1-1.8); Alkaline Phosphatase 52 U/L (38-126); Anion Gap 10.7 mEq/L (5-15); Bilirubin,Total 1.1 mg/dl (0.2-1.3); Calcium 7.8 mg/dl (8.4-10.2); Carbon Dioxide 24 mmol/L (22.0-30.0); Globulin 2.9 g/dL (1.3-3.2); Glucose 102 mg/dl (74-100); Magnesium 1.9 mg/dl (1.6-2.3); Total Protein,Serum 6.1 g/dl (6.3-8.2)
[2021-12-06 07:00] LABS: Potassium 2.7 mmoL/L (3.5-5.1)
--- NOTE | 2021-12-06 07:00 | PC.NURSE ---
Lab called to report potassium level of 2.7
--- NOTE | 2021-12-06 07:32 | HMH.DCSUM ---
General - General Admission date:: 12/03/21 Discharge date: 12/06/21 HPI HPI: 81-year-old white male, longtime patient of my practice, who struggles with baseline cognitive/functional impairments and a tremor/tic disorder, and a remote history of polysubstance abuse including a hallucinogenic's and LSD in the remote past, who has been very functional and has been living in a subsidized apartment by himself, while he has a friend of his family who oversees his financial affairs. Unfortunately over the past several months, his Conservatory, Ms. Desouza, has shared with me her concerns about his functional decline issues. This over the past 24 hours has come to ahead with increasing mental status change, some fever and development of increased lethargy and loss of functional status. Was brought to the ER, where extensive work-up revealed elevated lactic levels, fevers, and possible sepsis. He was admitted to the hospital with broad-spectrum antibiotics. And need for further diagnostic testing. Hospital Course Hospital Course: 81-year-old male with concern for Parkinson's in the outpatient setting. Admitted for sepsis due to pneumonia. Suspected aspiration pneumonia given difficulty swallowing. Treated with Broad-spectrum antibiotics. Sx improved to stability of meeting dishcarge status/criteria. Needs placement. Will transfer to [facility] fo rfurther management and trial of therapy. Difficulty swallowing necessitating speech eval during admission. Problems managed as follows: Sepsis Community acquired pneumonia -Admitted for concern for community-acquired pneumonia versus aspiration pneumonia. Started on broad-spectrum antibiotics including azithromycin, ceftriaxone, clindamycin. Has completed his course of azithromycin during admission. Given improvement, will transition to only clindamycin to complete an empiric 10-day course of antibiotics. PICC line was placed yesterday (12/05/2021). We will plan to leave in place until antibiotics finish, okay to remove after completing antibiotic course unless otherwise needed based on facility needs. Additionally treated with DuoNebs during admission. -Speech eval initiated during admission. See below with nutrition for full details. Rhabdomyolysis -Elevated CK on admission, the labs showed improvement. Condition resolving. No further treatment. Hypertension -Given difficulty with tolerating meds, no meds prior to admission, and goals of care, will hold on further medications at this time. re-evaluate if pt improves with PT/OT/Speech Nutrition -Patient evaluated by speech therapy for dysphagia. Barium swallow performed. Had poor performance and showed concerns for aspiration. Recommendation was to make patient NPO. Goals of care discussion with POA, patient would not want other means to deliver nutrition such as feeding tube. At this time given goals of care, will move forward with comfort feeds. Recommendations include mechanical soft diet with chopped meats and nectar thick liquids with straw. Also needs 1:1 assistance for continued cues and observation while eating. Patient has progressive debility. Concern for progressive neurologic disorder. Have discussed Parkinson's with him over the past year, concerned that this is progressing at this time. Discussed worsening swallowing, aspiration risk, and decompensation with POA (Renata Desouza). Patient would have no desire for feeding tube, aggressive life saving measures, or life support. Will transition to DNR. Plan to transfer to [place] setting tomorrow with trial of rehab and transition to hospice style care if unable to make progress. Will also complete empiric course of Abx for pneumonia. Stable for discharge to detention. Examined on day of discharge. Monge catheter removed on day of discharge. Patient allowed to have pleasure feeds. Objective Vital signs: Temp Pulse Resp BP Pulse Ox 99.1 F 76 18 90/54 L
--- NOTE | 2021-12-06 07:46 | DIET.NUTRFU ---
Addendum entered by Fouzia White RD, LD 12/06/21 10:04: LIAISON OFFICER did complete a comfort diet assessment recommending MSOFT chopped with nectar thick liquids with straw. 1:1 assistance is recommended to help with clearing food and verbal cues. He is planning on discharging today back to [place] Original Note: NATHAN reviewed POC with provider, DPOA has decided to not have PEG placed and continue comfort feeds as he gets stronger/able. Risks of aspiration have been reviewed and code status was changed to DNR. Plans to discharge back to [place] today
[2021-12-06 08:00] VITALS: BP 155/86; PULSE 82; RESP 20; TEMP 37.1; O2SAT 94
--- NOTE | 2021-12-06 08:19 | HMH.ACPN ---
Internal Medicine - PN: Subj *Date: 12/06/21 *Time: 08:19 Exam Vital signs and Labs for Last 24 Hours: Temp Pulse Resp BP Pulse Ox 99.1 F 76 18 90/54 L 96 12/06/21 04:00 12/06/21 06:10 12/06/21 04:00 12/06/21 04:00 12/06/21 04:00 Laboratory Results - last 24 hr 12/03/21 00:55: Urine Opiates Screen Negative, Urine Methadone Screen Negative, Ur Barbituates Screen Negative, Ur Phencyclidine Scrn Negative, Ur Amphetamines Screen Negative, U Benzodiazepines Scrn Negative, Urine Cocaine Screen Negative, U Marijuana (THC) Screen Negative 12/05/21 09:11: WBC 11.5 H D, RBC 5.00, Hgb 15.8, Hct 44.9, MCV 89.7, MCH 31.6 H, MCHC 35.2, RDW 15.0, Plt Count 119 L, MPV 10.5 H, Neut % (Auto) 84.3 H, Lymph % (Auto) 7.8 L, [place] % (Auto) 7.5, Eos % (Auto) 0.4, Baso % (Auto) 1.6, Neut # (Auto) 9.7 H, Lymph # (Auto) 0.9, [place] # (Auto) 0.9, Eos # (Auto) 0.0, Baso # (Auto) 0.2 12/05/21 18:40: Sodium 128 L, Potassium 3.1 L, Chloride 97 L, Carbon Dioxide 23, Anion Gap 11.1, BUN 15 D, Creatinine 0.60 L, Estimated Creat Clear 44, Estimated GFR 130, Est GFR ( Amer) 157, Glucose 106 H, Calcium 8.2 L, Magnesium 2.0, Total Bilirubin 1.1, AST 69 H, ALT 38, Alkaline Phosphatase 60, Total Creatine Kinase 447 H D, Total Protein 6.8, Albumin 3.6, Globulin 3.2, Albumin/Globulin Ratio 1.1 12/06/21 05:43: WBC 8.8, RBC 4.76, Hgb 14.4, Hct 42.3, MCV 88.9, MCH 30.3, MCHC 34.1, RDW 15.0, Plt Count 128 L, MPV 9.0, Neut % (Auto) 81.5 H, Lymph % (Auto) 7.5 L, [place] % (Auto) 10.1 H, Eos % (Auto) 0.5, Baso % (Auto) 0.3, Neut # (Auto) 7.2, Lymph # (Auto) 0.7, [place] # (Auto) 0.9, Eos # (Auto) 0.1, Baso # (Auto) 0.0 12/06/21 05:43: Sodium 131 L, Potassium 2.7 L*, Chloride 99, Carbon Dioxide 24, Anion Gap 10.7, BUN 16, Creatinine 0.60 L, Estimated Creat Clear 44, Estimated GFR 130, Est GFR ( Amer) 157, Glucose 102 H, Calcium 7.8 L, Magnesium 1.9, Total Bilirubin 1.1, AST 65 H, ALT 37, Alkaline Phosphatase 52, Total Protein 6.1 L, Albumin 3.2 L D, Globulin 2.9, Albumin/Globulin Ratio 1.1 I & O for Last 24 hours: Intake & Output 12/03/21 12/04/21 12/05/21 12/06/21 23:59 23:59 23:59 23:59 Intake Total 1260 / 1260 120 / 120 0 / 0 1270 / 1270 Output Total 800 / 1300 1700 / 2250 1675 / 1675 Balance 460 / -40 -1580 / -2130 -1675 / -1675 1270 / 1270 Weight 50.03 kg 51.823 kg 52.435 kg 52.254 kg Assessment and Plan (1) CAP (community acquired pneumonia) Status: Acute Qualifiers: Laterality: unspecified laterality Qualified Code(s): J18.9 - Pneumonia, unspecified organism Category: Medical Code(s): J18.9 - Pneumonia, unspecified organism (2) Tremor due to disorder of central nervous system Status: Acute Category: Medical Code(s): G96.9 - Disorder of central nervous system, unspecified; R25.1 - Tremor, unspecified (3) Personal history of nicotine dependence Status: Acute Category: Medical Code(s): Z87.891 - Personal history of nicotine dependence (4) Substance abuse in remission Status: Acute Category: Medical Code(s): F19.11 - Other psychoactive substance abuse, in remission (5) Altered mental status Status: Acute Qualifiers: Altered mental status type: delirium Qualified Code(s): R41.0 - Disorientation, unspecified Category: Medical Code(s): R41.82 - Altered mental status, unspecified (6) Severe sepsis with acute organ dysfunction Status: Acute Category: Medical Code(s): A41.9 - Sepsis, unspecified organism; R65.20 - Severe sepsis without septic shock (7) Rhabdomyolysis Status: Acute Category: Medical Code(s): M62.82 - Rhabdomyolysis The patient's infection will respond to the chosen ABx?: Yes Is the patient receiving the right drug, dose, and route?: Yes Could a more targeted ABx be ordered?: No
[2021-12-06 10:19] LABS: Coronavirus 19, PCR Not Detected (NotDetected)
[2021-12-06 10:20] LABS: Influenza A, PCR Not Detected (NotDetected); Influenza B, PCR Not Detected (NotDetected)
[2021-12-06 10:23] VITALS: PULSE 74; PULSE 77
--- NOTE | 2021-12-06 12:04 | PC.NURSE ---
Report called to Carla at [facility]
[2021-12-06 14:30] VITALS: PULSE 76; PULSE 77
--- NOTE | 2021-12-06 15:17 | PC.NURSE ---
before being discharged patient had to get 3 runs of potassium. ambulance has now been called.
== END 2021-12-06 15:30 | DRG 871 ==
LOC: ER 03:09 → 2ND 03:30
PROVIDERS: Internal Medicine Adolescent Medicine; Admitting Provider Emergency Medicine; Emergency Provider Emergency Medicine; PCP Internal Medicine Adolescent Medicine; Visit Provider Internal Medicine Adolescent Medicine
DX: A41.9 Sepsis, unspecified organism (principal); J18.9 Pneumonia, unspecified organism; M62.82 Rhabdomyolysis; J44.0 Chronic obstructive pulmonary disease with (acute) lower respiratory infection; R65.20 Severe sepsis without septic shock; Z87.891 Personal history of nicotine dependence; I10 Essential (primary) hypertension; K21.9 Gastro-esophageal reflux disease without esophagitis; Z66 Do not resuscitate; Z20.822 Contact with and (suspected) exposure to COVID-19
CPT/HCPCS: 36569; 36410; 36415; 51702; 70371; 70450; 71045; 72125; 80048; 80053; 80305; 81001; 82140; 82550; 82607; 82803; 83605; 83735; 83880; 84145; 84443; 84484; 85007; 85025; 85651; 86140; 87040; 87070; 87186; 87205; 92507; 92610; 92611; 93005; 93306; 94640; 97110; 97163; 97166; 97530; 99285; C1751; C9803; J0456; J0696; U0003; U0005